=== PATIENT | male | born 2000 | race Caucasian/White ===

== ENCOUNTER 2018-01-24 23:49 | Emergency (ER) | payer OTHER, MEDICAID, SELFPAY ==
[2018-01-24 23:58] VITALS: BP 151/111; PULSE 75; RESP 16; TEMP 36.6; O2SAT 97
--- NOTE | 2018-01-25 00:08 | ED.MALEGU ---
HPI - Male Genitourinary General Chief complaint: Urogenital-Male Stated complaint: groin pain left Time Seen by Provider: 01/25/18 00:03 Source: patient Mode of arrival: ambulatory Limitations: no limitations History of Present Illness HPI Narrative: The patient spontaneously developed severe left hemiscrotum pain about 9:00 p.m. tonight. He had a narcotic pain pills left over from prior dental surgery. He took the medication with little relief. He arrives approximately 3 hr later with continued pain. There is no radiation pain in the lower abdomen. There is no redness or swelling. He has no fever. He denies dysuria. He is a virgin, he has no history of infection. He has similar episode of pain about 3 days ago. The left hemiscrotum was involved at that time too. The pain resolved spontaneously, rather quickly, upon that presentation. Related Data Previous Rx's Medication Instructions Recorded methylphenidate HCl 5 mg PO QAM #30 tab 01/20/17 methylphenidate HCl 5 mg PO QAM #30 tab 01/20/17 methylphenidate HCl [Concerta] 54 mg PO QAM #30 tab 01/20/17 methylphenidate HCl [Concerta] 54 mg PO QAM #30 tab 01/20/17 methylphenidate HCl [Concerta] 36 mg PO QAM #60 tab 04/27/17 citalopram 40 mg tablet 40 mg PO QDAY #30 tab 12/09/17 methylphenidate 5 mg tablet 5 mg PO QAM #30 tab MDD 64 mg 01/23/18 methylphenidate ER 54 mg 54 mg PO QAM #30 tab MDD 64 mg 01/23/18 tablet,extended release 24 hr Allergies Allergy/AdvReac Type Severity Reaction Status Date / Time No Known Drug Allergies Allergy Unverified 12/27/17 09:01 Review of Systems Review of Systems All systems reviewed & are unremarkable except as noted in HPI and below Constitutional Denies chills, Denies fever(s), Denies lethargy and Denies weakness Gastrointestinal Gastrointestinal: Denies abdominal pain, Denies change in bowel habits, Denies diarrhea, Denies nausea and Denies vomiting Genitourinary Reports as per HPI, Denies hematuria, Denies flank pain, Reports testicular pain, Denies urinary incontinence and Denies urinary urgency Integumentary/Breasts Denies pruritus, Denies erythema, Denies rash and Denies wounds Neurologic Denies weakness COUNT INCLUDES THE [facility] Medical History ADHD (attention deficit hyperactivity disorder) (Acute) No significant medical problems (Acute) No significant past surgical history (Acute) Social History Smoking Status: Never smoker alcohol intake: current substance use type: does not use Exam Initial Vital Signs Initial Vital Signs: Vital Signs Temperature 97.8 F 01/24/18 23:58 Pulse Rate 75 01/24/18 23:58 Respiratory Rate 16 01/24/18 23:58 Blood Pressure 151/111 H 01/24/18 23:58 Pulse Oximetry 97 01/24/18 23:58 Const General: cooperative, well developed and acute distress (He is obviously in pain.) Nutritional Appearance: well nourished Orientation: alert, awake, oriented x3 and not confused Resp Effort & Inspection: normal respiratory effort, able to speak in complete sentences, no respiratory distress and no use of accessory muscles Auscultation: clear to auscultation bilaterally, no rales, no rhonchi and no wheezes Cardio Rate: regular rate Rhythm: regular rhythm Heart Sounds: no click, no gallops, no murmurs and no rubs Pulses: normal peripheral pulses GI Inspection: non-distended Palpation: soft, no hepatosplenomegaly, No guarding, No pulsatile mass and No tender Auscultation: normal bowel sounds External: normal external exam, no edema, no erythema and no hernia Penis: normal penis Scrotum: no masses and no scrotal swelling Testes: testicular tenderness on the left and high-riding testicle on the left (The left testicle was rotated 90, consistent with testicular torsion.) Skin General: no rashes or lesions noted Neuro General: alert, oriented x3 and no focal motor deficits Speech: speech normal Course Orders Ordered: ED Orders 01/25/18 00:12 US scrotum Stat 01/25/18 00:23 Complete Blood Count AUTO DIFF Stat Sodium Chloride (Normal Saline 0.9%) 1,000 mls @ 150 mls/hr IV CONT KEANU Last Admin: 01/25/18 00:29 Dose: 150 mls/hr Discontinued Medications Morphine Sulfate (Morphine) 4 mg IV NOW ONE Stop: 01/25/18 00:10 Last Admin: 01/25/18 00:29 Dose: 4 mg Vital Signs - 8 hr 01/24/18 23:58 01/25/18 00:44 01/25/18 00:50 Temperature 97.8 F Pulse Rate 75 84 Respiratory Rate 16 16 Blood Pressure 151/111 H Blood Pressure [Left Arm] 140/82 140/82 Pulse Oximetry 97 99 MDM - Male Genitourinary Medical Records Attestation: I reviewed the patient's medical records. Lab Data Attestation: I reviewed the patient's lab results. Result diagrams: 01/25/18 00:23 Lab Results 01/25/18 Range/Units 00:23 WBC 10.5 (4.5-11.0) X10^3/uL RBC 4.55 (4.5-5.9) X10^6/uL Hgb 14.0 (13.5-17.5) g/dL Hct 40.5 L (41-53) % MCV 89.1 (80-100) fL MCH 30.7 (26-34) PG MCHC 34.4 (30-36) % RDW 13.1 (11.6-14.8) % Plt Count 226 (150-400) X10^3/uL Neut % (Auto) 74.5 (50-75) % Lymph % (Auto) 19.4 L (25-40) % [place] % (Auto) 5.4 (3-14) % Eos % (Auto) 0.3 L (2-4) % Baso % (Auto) 0.4 (0-2) % Neut # (Auto) 7800 H ([id number]) /uL Additional labs are pending at the time of this transfer. That information will be faxed to the attending physicians at [facility] when available. Imaging Data Scrotal ultrasound: My impression: The right testicle demonstrates normal blood flow, no issues. On initial ultrasound there was significant restriction to the left testicle. There appeared to be only minimal blood flow at the periphery. During the ultrasound evaluation the patient experienced a sudden decrease in pain in the left testicle. There was some attains mandaeism of normal flow to the left testicle. Evaluation is most consistent with testicular torsion. [facility] Narrative Medical decision making narrative: I discussed the patient's history, clinical presentation and ultrasound findings with Urology, Dr Ortiz, at the [facility]. She has accepted the patient, he will be evaluated at the [facility] ER. The ER physician, Dr. Joel, was notified of the pending transfer. The patient will be transferred by private vehicle, his mother will be driving him there. Discharge Plan Departure Patient Disposition: [facility] Clinical Impression: Left testicular torsion Prescriptions: No Action methylphenidate HCl 5 MG tablet 5 mg PO QAM Qty: 30 RF: 0 methylphenidate HCl 5 MG tablet 5 mg PO QAM Qty: 30 RF: 0 methylphenidate HCl [Concerta] 54 MG tablet extended release 24hr 54 mg PO QAM Qty: 30 RF: 0 methylphenidate HCl [Concerta] 54 MG tablet extended release 24hr 54 mg PO QAM Qty: 30 RF: 0 methylphenidate HCl [Concerta] 36 MG tablet extended release 24hr 36 mg PO QAM Qty: 60 RF: 0 citalopram [Celexa] 40 mg tablet 40 mg PO QDAY Qty: 30 RF: 5 methylphenidate HCl [Concerta] 54 mg tablet extended release 24hr 54 mg PO QAM MDD 64 mg Qty: 30 RF: 0 methylphenidate HCl 5 mg tablet 5 mg PO QAM MDD 64 mg Qty: 30 RF: 0
--- NOTE | 2018-01-25 00:12 | DI.US.S_ITS ---
PROCEDURE: US SCROTUM INDICATIONS: SEVERE LEFT TESTICULAR PAIN TECHNIQUE: Real-time scanning was performed of the scrotum and testicles, with image documentation. Color and pulse Doppler interrogation was performed of both testicles. COMPARISON: None. FINDINGS: Right: Testicle is normal in size at 2.1 x 2.6 x 4.4 cm, and homogenous in echotexture. Epididymis is normal in overall size and morphology. No hydrocele or varicoceles. Overlying scrotal skin is normal in thickness. Left: Testicle is normal in size at 2.3 x 2.4 x 3.2 cm, and homogeneous in echotexture. Epididymis is asymmetrically mildly larger in overall size and normal in morphology. The left testis measures 9 mm in thickness and the right measures 7 mm. There is mildly increased blood flow at the left epididymis when compared to that on the right. No hydrocele or varicoceles. Overlying scrotal skin is normal in thickness. Doppler: Color and pulse Doppler demonstrate normal and symmetric arterial flow in both testicles. IMPRESSION: Left-sided epididymitis, no evidence of definite left orchitis. Blood flow is patent to the testicles bilaterally. Testicular size is symmetric bilaterally given normal anatomic variation. Dictated by: Rajat Urbina M.D. on 01/25/2018 at 8:14 Approved by: Rajat Urbina M.D. on 01/25/2018 at 8:18
[2018-01-25] MEDS: MORPHINE 4 MG/ML INJ IV (00:29)
[2018-01-25] MEDS: SODIUM CHLORIDE 0.9% 1,000 ML 150 ML IV (00:29)
[2018-01-25 00:33] LABS: Add Manual Diff / Slide Review NO; Basophils Percent Auto 0.4 % (0-2); Eosinophils Percent Auto 0.3 % (2-4); Hematocrit 40.5 % (41-53); Lymphocytes Percent Auto 19.4 % (25-40); Mean Corpuscular HGB Conc 34.4 % (30-36); Mean Corpuscular Hemoglobin 30.7 PG (26-34); Mean Corpuscular Volume 89.1 fL (80-100); Monocytes Percent Auto 5.4 % (3-14); Neutrophils Absolute Auto 7800 /uL (3000-5900); Neutrophils Percent Auto 74.5 % (50-75); Platelet Count 226 X10^3/uL (150-400); Red Blood Cell Count 4.55 X10^6/uL (4.5-5.9); Red Cell Distribution Width 13.1 % (11.6-14.8); White Blood Cell Count 10.5 X10^3/uL (4.5-11.0)
[2018-01-25 00:44] VITALS: BP 140/82
[2018-01-25 00:50] VITALS: BP 140/82; PULSE 84; RESP 16; O2SAT 99
--- NOTE | 2018-01-25 01:12 | ED_ITS ---
HPI - Male Genitourinary General Chief complaint: Urogenital-Male Stated complaint: groin pain left Time Seen by Provider: 01/25/18 00:03 Source: patient Mode of arrival: ambulatory Limitations: no limitations History of Present Illness HPI Narrative: The patient spontaneously developed severe left hemiscrotum pain about 9:00 p.m. tonight. He had a narcotic pain pills left over from prior dental surgery. He took the medication with little relief. He arrives approximately 3 hr later with continued pain. There is no radiation pain in the lower abdomen. There is no redness or swelling. He has no fever. He denies dysuria. He is a virgin, he has no history of infection. He has similar episode of pain about 3 days ago. The left hemiscrotum was involved at that time too. The pain resolved spontaneously, rather quickly, upon that presentation. Related Data Previous Rx's Medication Instructions Recorded methylphenidate HCl 5 mg PO QAM #30 tab 01/20/17 methylphenidate HCl 5 mg PO QAM #30 tab 01/20/17 methylphenidate HCl [Concerta] 54 mg PO QAM #30 tab 01/20/17 methylphenidate HCl [Concerta] 54 mg PO QAM #30 tab 01/20/17 methylphenidate HCl [Concerta] 36 mg PO QAM #60 tab 04/27/17 citalopram 40 mg tablet 40 mg PO QDAY #30 tab 12/09/17 methylphenidate 5 mg tablet 5 mg PO QAM #30 tab MDD 64 mg 01/23/18 methylphenidate ER 54 mg 54 mg PO QAM #30 tab MDD 64 mg 01/23/18 tablet,extended release 24 hr Allergies Allergy/AdvReac Type Severity Reaction Status Date / Time No Known Drug Allergies Allergy Unverified 12/27/17 09:01 Review of Systems Review of Systems All systems reviewed & are unremarkable except as noted in HPI and below Constitutional Denies chills, Denies fever(s), Denies lethargy and Denies weakness Gastrointestinal Gastrointestinal: Denies abdominal pain, Denies change in bowel habits, Denies diarrhea, Denies nausea and Denies vomiting Genitourinary Reports as per HPI, Denies hematuria, Denies flank pain, Reports testicular pain , Denies urinary incontinence and Denies urinary urgency Integumentary/Breasts Denies pruritus, Denies erythema, Denies rash and Denies wounds Neurologic Denies weakness [facility] Medical History ADHD (attention deficit hyperactivity disorder) (Acute) No significant medical problems (Acute) No significant past surgical history (Acute) Social History Smoking Status: Never smoker alcohol intake: current substance use type: does not use Exam Initial Vital Signs Initial Vital Signs: Vital Signs Temperature 97.8 F 01/24/18 23:58 Pulse Rate 75 01/24/18 23:58 Respiratory Rate 16 01/24/18 23:58 Blood Pressure 151/111 H 01/24/18 23:58 Pulse Oximetry 97 01/24/18 23:58 Const General: cooperative, well developed and acute distress (He is obviously in pain.) Nutritional Appearance: well nourished Orientation: alert, awake, oriented x3 and not confused Resp Effort & Inspection: normal respiratory effort, able to speak in complete sentences, no respiratory distress and no use of accessory muscles Auscultation: clear to auscultation bilaterally, no rales, no rhonchi and no wheezes Cardio Rate: regular rate Rhythm: regular rhythm Heart Sounds: no click, no gallops, no murmurs and no rubs Pulses: normal peripheral pulses GI Inspection: non-distended Palpation: soft, no hepatosplenomegaly, No guarding, No pulsatile mass and No tender Auscultation: normal bowel sounds External: normal external exam, no edema, no erythema and no hernia Penis: normal penis Scrotum: no masses and no scrotal swelling Testes: testicular tenderness on the left and high-riding testicle on the left ( The left testicle was rotated 90, consistent with testicular torsion.) Skin General: no rashes or lesions noted Neuro General: alert, oriented x3 and no focal motor deficits Speech: speech normal Course Orders Ordered: ED Orders 01/25/18 00:12 US scrotum Stat 01/25/18 00:23 Complete Blood Count AUTO DIFF Stat Sodium Chloride (Normal Saline 0.9%) 1,000 mls @ 150 mls/hr IV CONT KEANU Last Admin: 01/25/18 00:29 Dose: 150 mls/hr Discontinued Medications Morphine Sulfate (Morphine) 4 mg IV NOW ONE Stop: 01/25/18 00:10 Last Admin: 01/25/18 00:29 Dose: 4 mg Vital Signs - 8 hr 01/24/18 23:58 01/25/18 00:44 01/25/18 00:50 Temperature 97.8 F Pulse Rate 75 84 Respiratory Rate 16 16 Blood Pressure 151/111 H Blood Pressure [Left Arm] 140/82 140/82 Pulse Oximetry 97 99 MDM - Male Genitourinary Medical Records Attestation: I reviewed the patient's medical records. Lab Data Attestation: I reviewed the patient's lab results. Result diagrams: 01/25/18 00:23 Lab Results 01/25/18 Range/Units 00:23 WBC 10.5 (4.5-11.0) X10^3/uL RBC 4.55 (4.5-5.9) X10^6/uL Hgb 14.0 (13.5-17.5) g/dL Hct 40.5 L (41-53) % MCV 89.1 (80-100) fL MCH 30.7 (26-34) PG MCHC 34.4 (30-36) % RDW 13.1 (11.6-14.8) % Plt Count 226 (150-400) X10^3/uL Neut % (Auto) 74.5 (50-75) % Lymph % (Auto) 19.4 L (25-40) % [place] % (Auto) 5.4 (3-14) % Eos % (Auto) 0.3 L (2-4) % Baso % (Auto) 0.4 (0-2) % Neut # (Auto) 7800 H ([id number]) /uL Additional labs are pending at the time of this transfer. That information will be faxed to the attending physicians at [facility] when available. Imaging Data Scrotal ultrasound: My impression: The right testicle demonstrates normal blood flow, no issues. On initial ultrasound there was significant restriction to the left testicle. There appeared to be only minimal blood flow at the periphery. During the ultrasound evaluation the patient experienced a sudden decrease in pain in the left testicle. There was some attains samaritan of normal flow to the left testicle. Evaluation is most consistent with testicular torsion. [facility] Narrative Medical decision making narrative: I discussed the patient's history, clinical presentation and ultrasound findings with Urology, Dr Ortiz, at the [facility]. She has accepted the patient, he will be evaluated at the [facility] ER. The ER physician, Dr. Joel, was notified of the pending transfer. The patient will be transferred by private vehicle, his mother will be driving him there. Discharge Plan Departure Patient Disposition: [facility] Clinical Impression: Left testicular torsion Prescriptions: No Action methylphenidate HCl 5 MG tablet 5 mg PO QAM Qty: 30 RF: 0 methylphenidate HCl 5 MG tablet 5 mg PO QAM Qty: 30 RF: 0 methylphenidate HCl [Concerta] 54 MG tablet extended release 24hr 54 mg PO QAM Qty: 30 RF: 0 methylphenidate HCl [Concerta] 54 MG tablet extended release 24hr 54 mg PO QAM Qty: 30 RF: 0 methylphenidate HCl [Concerta] 36 MG tablet extended release 24hr 36 mg PO QAM Qty: 60 RF: 0 citalopram [Celexa] 40 mg tablet 40 mg PO QDAY Qty: 30 RF: 5 methylphenidate HCl [Concerta] 54 mg tablet extended release 24hr 54 mg PO QAM MDD 64 mg Qty: 30 RF: 0 methylphenidate HCl 5 mg tablet 5 mg PO QAM MDD 64 mg Qty: 30 RF: 0
[2018-01-25 01:18] VITALS: BP 114/61; PULSE 82; RESP 18; O2SAT 99
== END 2018-01-25 01:18 | disposition short-term general hospital (02) ==
PROVIDERS: Emergency Provider Emergency Medicine
DX: N44.00 Torsion of testis, unspecified (principal)
CPT/HCPCS: 36591; 76870; 85025; 96361; 96374; 99283; 99284; J2270

== ENCOUNTER 2018-01-29 13:10 | Emergency (ER) | payer OTHER, MEDICAID, SELFPAY ==
[2018-01-29 13:16] VITALS: BP 128/71; PULSE 93; RESP 15; TEMP 36.8; O2SAT 97; BMI 19.7
--- NOTE | 2018-01-29 13:35 | DI.CT.S_ITS ---
PROCEDURE: CT ABDOMEN PELVIS W CON INDICATIONS: Pain to right upper and right lower quadrant TECHNIQUE: After the administration of intravenous contrast, 5 mm thick sections acquired from the diaphragm to the symphysis. 5 mm coronal and sagittal reformats were acquired. For radiation dose reduction, the following was used: automated exposure control, adjustment of mA and/or kV according to patient size. COMPARISON: None. FINDINGS: Image quality: Excellent. ABDOMEN: Lung bases: There is a 4 mm right lower lobe pulmonary nodule, which is likely post infectious/inflammatory in this age group. Heart size is normal. Solid organs: Liver is normal in size and enhancement. Gallbladder is unremarkable. Biliary system is non dilated. Pancreas enhances normally. Spleen is normal in size and enhancement. There is a 1.0 cm left adrenal nodule. Kidneys demonstrate normal size and enhancement, without hydronephrosis. Peritoneum and bowel: The appendix cannot be clearly identified on this exam, but there are no right lower quadrant inflammatory findings to suggest acute appendicitis. There is diffuse hyperemia and wall thickening of the left descending colon, sigmoid colon, and rectum. No free fluid or air. Nodes and vessels: No retroperitoneal or mesenteric adenopathy by size criteria. Aorta and inferior vena cava are normal in size. Miscellaneous: No ventral hernias. PELVIS: Genitourinary: Bladder wall thickness is normal. Miscellaneous: No inguinal hernias or adenopathy. There are small bilateral hydroceles. Bones: No suspicious bony lesions. No vertebral body compression fractures. IMPRESSION: #1. Diffuse hyperemia and wall thickening of the left descending colon, sigmoid colon, and rectum, which can be seen with colitis. #2. The appendix cannot be definitively identified on this exam, but there are no right lower quadrant inflammatory findings to suggest acute appendicitis. #3. 1.0 cm left adrenal nodule. An outpatient adrenal protocol CT can be considered for further evaluation. #4. Small bilateral hydroceles. Dictated by: Louis Ramesh MD. on 01/29/2018 at 15:56 Approved by: Louis Ramesh M.D. on 01/29/2018 at 16:05
[2018-01-29 13:58] LABS: Add Manual Diff / Slide Review NO; Basophils Percent Auto 0.1 % (0-2); Eosinophils Percent Auto 0.2 % (2-4); Hematocrit 40.2 % (41-53); Hemoglobin 13.9 g/dL (13.5-17.5); Lymphocytes Percent Auto 7.7 % (25-40); Mean Corpuscular HGB Conc 34.6 % (30-36); Mean Corpuscular Hemoglobin 30.7 PG (26-34); Mean Corpuscular Volume 88.8 fL (80-100); Monocytes Percent Auto 14.3 % (3-14); Neutrophils Absolute Auto 6800 /uL (3000-5900); Neutrophils Percent Auto 77.7 % (50-75); Platelet Count 202 X10^3/uL (150-400); Red Blood Cell Count 4.53 X10^6/uL (4.5-5.9); Red Cell Distribution Width 12.8 % (11.6-14.8); White Blood Cell Count 8.8 X10^3/uL (4.5-11.0)
[2018-01-29] MEDS: SODIUM CHLORIDE 0.9% 1,000 ML 1000 ML IV (14:01)
[2018-01-29 14:02] VITALS: BP 93/58; PULSE 106; O2SAT 100
[2018-01-29 14:08] LABS: Alanine Aminotransferase 22 IU/L (21-72); Albumin 4.5 g/dL (3.5-5.0); Albumin Globulin Ratio 1.5 (1.0-2.8); Alkaline Phosphatase 75 U/L (38-126); Aspartate Aminotransferase 24 IU/L (17-59); Bilirubin Total 0.4 mg/dL (0.2-1.3); Blood Urea Nitrogen 9 mg/dL (9-20); Calcium 9.3 mg/dL (8.4-10.2); Carbon Dioxide 27 mmol/L (22-32); Chloride 98 mmol/L (98-107); Estimated Glomerular Filt Rate > 60.0 mL/min (>60); Globulin 3.1 g/dL (1.7-4.1); Glucose 101 mg/dL (70-100); HEMOLYSIS < 15 (0-50); Lipase 17 U/L (23-300); Sodium 138 mmol/L (137-145); Total Protein 7.6 g/dL (6.3-8.2)
[2018-01-29 14:20] VITALS: TEMP 37
--- NOTE | 2018-01-29 14:30 | ED_ITS ---
HPI - Fever <BIRDIE Vang - Last Filed: 01/29/18 21:03> General Chief Complaint: Fever Stated Complaint: Surgery 01/25/18; 101 fever all night Time Seen by Provider: 01/29/18 13:17 Source: patient Mode of arrival: ambulatory Limitations: no limitations History of Present Illness HPI Narrative: 18-year-old male with history of left testicular torsion is a nonsmoker here for complaint of having abdominal pain along with nausea vomiting and diarrhea. he restarted with a fever last night as well. He recently had testicular torsion last week that resolved on its own however he did go to [facility] neurology were the did conduct surgery to tack down both of his testicles to prevent future and testicular torsions. He denies any complications at the incision site or the scrotum. he denies any increased pain into the operative site. Pain is to the right side of his abdomen. He denies taking any antibiotics after the surgery. He denies any trauma to the abdomen. he denies any urinary symptoms. Related Data Previous Rx's Medication Instructions Recorded methylphenidate HCl 5 mg PO QAM #30 tab 01/20/17 methylphenidate HCl 5 mg PO QAM #30 tab 01/20/17 methylphenidate HCl [Concerta] 54 mg PO QAM #30 tab 01/20/17 methylphenidate HCl [Concerta] 54 mg PO QAM #30 tab 01/20/17 methylphenidate HCl [Concerta] 36 mg PO QAM #60 tab 04/27/17 citalopram 40 mg tablet 40 mg PO QDAY #30 tab 12/09/17 methylphenidate 5 mg tablet 5 mg PO QAM #30 tab MDD 64 mg 01/23/18 methylphenidate ER 54 mg 54 mg PO QAM #30 tab MDD 64 mg 01/23/18 tablet,extended release 24 hr ondansetron 4 mg PO Q6-8H PRN #10 tab 01/29/18 Allergies Allergy/AdvReac Type Severity Reaction Status Date / Time No Known Drug Allergies Allergy Verified 01/29/18 13:16 Review of Systems <BIRDIE Vang - Last Filed: 01/29/18 21:03> Constitutional Reports fever(s) Eyes Denies change in vision, Denies eye discharge, Denies irritation and Denies loss of vision ENT Ears, Nose, Mouth, and Throat: Denies change in voice, Denies neck pain and Denies sore throat Cardiovascular Denies chest pain, Denies irregular heart rhythm, Denies lightheadedness, Denies palpitations, Denies dyspnea, Denies dyspnea on exertion and Denies orthopnea Respiratory Denies cough, Denies dyspnea, Denies dyspnea on exertion and Denies wheezing Gastrointestinal Gastrointestinal: Reports abdominal pain, Reports diarrhea and Reports nausea Genitourinary Denies hematuria, Denies flank pain, Denies urinary incontinence and Denies urinary urgency Musculoskeletal Denies neck pain Integumentary/Breasts Denies pruritus, Denies erythema, Denies rash and Denies wounds Neurologic Denies confusion and Denies loss of vision Psychiatric Denies anxiety, Denies confusion, Denies depression, Denies homicidal ideation and Denies suicidal ideation Endocrine Denies palpitations Hematologic/Lymphatic Denies easy bruising Allergic/Immunologic Denies wheezing Exam <BIRDIE Vang - Last Filed: 01/29/18 21:03> Initial Vital Signs Initial Vital Signs: Vital Signs Temperature 98.2 F 01/29/18 13:16 Pulse Rate 93 H 01/29/18 13:16 Respiratory Rate 15 01/29/18 13:16 Blood Pressure 128/71 01/29/18 13:16 Pulse Oximetry 97 01/29/18 13:16 Const General: cooperative and well developed Nutritional Appearance: well nourished Orientation: alert, awake, oriented x3 and not confused [facility] Mouth: oral mucosae normal and moist mucous membranes Eyes Conjunctivae: conjunctivae normal Sclera: sclerae normal Pupils: PERRL EOM: EOM intact bilaterally Resp Effort & Inspection: normal respiratory effort, able to speak in complete sentences, no respiratory distress and no use of accessory muscles Auscultation: clear to auscultation bilaterally, no rales, no rhonchi and no wheezes Cardio Rate: regular rate Rhythm: regular rhythm Heart Sounds: no click, no gallops, no murmurs and no rubs Pulses: normal peripheral pulses GI Inspection: non-distended Palpation: soft, no hepatosplenomegaly, No guarding, No pulsatile mass and tender ( Tenderness on palpation to the right lower quadrant and right upper quadrant.) Auscultation: normal bowel sounds General: No CVA tenderness External: uncircumcised Penis: normal penis Meatus: meatus normal Scrotum: other ( Postsurgical ecchymosis is seen into the scrotal area. No swelling. Incision site appears to be healing well. No signs of infection. No drainage.) Skin General: no rashes or lesions noted, No jaundice and No petechiae Neuro General: alert, oriented x3, gait normal and no focal motor deficits Speech: speech normal <Flako Vilchis DO - Last Filed: 02/01/18 18:13> Initial Vital Signs Initial Vital Signs: Vital Signs Temperature 98.2 F 01/29/18 13:16 Pulse Rate 93 H 01/29/18 13:16 Respiratory Rate 15 01/29/18 13:16 Blood Pressure 128/71 01/29/18 13:16 Pulse Oximetry 97 01/29/18 13:16 Course <BIRDIE Vang - Last Filed: 01/29/18 21:03> Orders Ordered: Discontinued Medications Hydromorphone HCl (Dilaudid) 0.5 mg IV NOW ONE Stop: 01/29/18 13:35 Last Admin: 01/29/18 15:38 Dose: Not Given Sodium Chloride (Normal Saline 0.9%) 1,000 mls @ 1,000 mls/hr IV BOLUS ONE Stop: 01/29/18 14:33 Last Infusion: 01/29/18 14:58 Dose: 0 mls/hr Admin: 01/29/18 14:01 Dose: 1,000 mls/hr Ondansetron HCl (Zofran) 4 mg IV NOW ONE Stop: 01/29/18 13:35 Last Admin: 01/29/18 15:38 Dose: Not Given Vital Signs - 8 hr 01/29/18 13:16 01/29/18 14:02 01/29/18 14:20 Temperature 98.2 F 98.6 F Pulse Rate 93 H 106 H Respiratory Rate 15 Blood Pressure 128/71 Blood Pressure [Right Arm] 93/58 L Pulse Oximetry 97 100 01/29/18 15:39 01/29/18 16:33 Temperature 100.6 F H Pulse Rate 94 H 101 H Respiratory Rate 18 16 Blood Pressure 128/65 Blood Pressure [Right Arm] 113/64 Pulse Oximetry 97 99 <Flako Vilchis DO - Last Filed: 02/01/18 18:13> Orders Ordered: Discontinued Medications Hydromorphone HCl (Dilaudid) 0.5 mg IV NOW ONE Stop: 01/29/18 13:35 Last Admin: 01/29/18 15:38 Dose: Not Given Sodium Chloride (Normal Saline 0.9%) 1,000 mls @ 1,000 mls/hr IV BOLUS ONE Stop: 01/29/18 14:33 Last Infusion: 01/29/18 14:58 Dose: 0 mls/hr Admin: 01/29/18 14:01 Dose: 1,000 mls/hr Ondansetron HCl (Zofran) 4 mg IV NOW ONE Stop: 01/29/18 13:35 Last Admin: 01/29/18 15:38 Dose: Not Given Vital Signs - 8 hr 01/29/18 13:16 01/29/18 14:02 01/29/18 14:20 Temperature 98.2 F 98.6 F Pulse Rate 93 H 106 H Respiratory Rate 15 Blood Pressure 128/71 Blood Pressure [Right Arm] 93/58 L Pulse Oximetry 97 100 01/29/18 15:39 01/29/18 16:33 Temperature 100.6 F H Pulse Rate 94 H 101 H Respiratory Rate 18 16 Blood Pressure 128/65 Blood Pressure [Right Arm] 113/64 Pulse Oximetry 97 99 MDM - Fever <BIRDIE Vang - Last Filed: 01/29/18 21:03> Lab Data Result diagrams: 01/29/18 13:46 01/29/18 13:46 Lab Results 01/29/18 01/29/18 01/29/18 Range/Units 13:46 13:46 14:50 WBC 8.8 (4.5-11.0) X10^3/uL RBC 4.53 (4.5-5.9) X10^6/uL Hgb 13.9 (13.5-17.5) g/dL Hct 40.2 L (41-53) % MCV 88.8 (80-100) fL MCH 30.7 (26-34) PG MCHC 34.6 (30-36) % RDW 12.8 (11.6-14.8) % Plt Count 202 (150-400) X10^3/uL Neut % (Auto) 77.7 H (50-75) % Lymph % (Auto) 7.7 L (25-40) % Parke % (Auto) 14.3 H (3-14) % Eos % (Auto) 0.2 L (2-4) % Baso % (Auto) 0.1 (0-2) % Neut # (Auto) 6800 H (0784-5167) /uL Sodium 138 (137-145) mmol/L Potassium 4.0 (3.4-5.1) mmol/L Chloride 98 (98-107) mmol/L Carbon Dioxide 27 (22-32) mmol/L BUN 9 (9-20) mg/dL Creatinine 1.00 (0.66-1.25) mg/dL Estimated GFR > 60.0 (>60) mL/min BUN/Creatinine Ratio 9.0 (6-22) Glucose 101 H (70-100) mg/dL Calcium 9.3 (8.4-10.2) mg/dL Total Bilirubin 0.4 (0.2-1.3) mg/dL AST 24 (17-59) IU/L ALT 22 (21-72) IU/L Alkaline Phosphatase 75 (38-126) U/L Total Protein 7.6 (6.3-8.2) g/dL Albumin 4.5 (3.5-5.0) g/dL Globulin 3.1 (1.7-4.1) g/dL Albumin/Globulin Ratio 1.5 (1.0-2.8) Lipase 17 L (23-300) U/L Urine RBC 0-1/hpf (0-5/HPF) Urine WBC None seen (0-5/HPF) Urine Bacteria None seen (None) Ur Culture Indicated? Cult not indicated Micro UA Comment Not Reportable Urine Dip Bedside Urine Glucose Negative Bedside Urine Bilirubin - Negative Bedside Urine Ketone + 15 Urine Specific [place] 1.010 Bedside Urine Occult Blood +/- Bedside Urine pH 6.0 Bedside Urine Protein - Negative Bedside Urine Urobilinogen - Negative Bedside Urine Nitrite - Negative Bedside Urine Leukocytes - Negative Esterase Imaging Data CT scan - abdomen: Radiologist's impression: [address] [id number] [address] Scan Report Signed Patient: Andres Galarza TMR#: [id number] : 2000Acct:[id number] Age/Sex: te of Service: 01/29/18 Loc: ED Accession Number: [id number] Procedure: CT abdomen pelvis w con Ordering Provider: Markus Persaud PROCEDURE: CT ABDOMEN PELVIS W CON INDICATIONS: Pain to right upper and right lower quadrant TECHNIQUE: After the administration of intravenous contrast, 5 mm thick sections acquired from the diaphragm to the symphysis. 5 mm coronal and sagittal reformats were acquired. For radiation dose reduction, the following was used: automated exposure control, adjustment of mA and/or kV according to patient size. COMPARISON: None. FINDINGS: Image quality: Excellent. ABDOMEN: Lung bases: There is a 4 mm right lower lobe pulmonary nodule, which is likely post infectious/inflammatory in this age group. Heart size is normal. Solid organs: Liver is normal in size and enhancement. Gallbladder is unremarkable. Biliary system is non dilated. Pancreas enhances normally. Spleen is normal in size and enhancement. There is a 1.0 cm left adrenal nodule. Kidneys demonstrate normal size and enhancement, without hydronephrosis. Peritoneum and bowel: The appendix cannot be clearly identified on this exam, but there are no right lower quadrant inflammatory findings to suggest acute appendicitis. There is diffuse hyperemia and wall thickening of the left descending colon, sigmoid colon, and rectum. No free fluid or air. Nodes and vessels: No retroperitoneal or mesenteric adenopathy by size criteria. Aorta and inferior vena cava are normal in size. Miscellaneous: No ventral hernias. PELVIS: Genitourinary: Bladder wall thickness is normal. Miscellaneous: No inguinal hernias or adenopathy. There are small bilateral hydroceles. Bones: No suspicious bony lesions. No vertebral body compression fractures. IMPRESSION: #1. Diffuse hyperemia and wall thickening of the left descending colon, sigmoid colon, and rectum, which can be seen with colitis. #2. The appendix cannot be definitively identified on this exam, but there are no right lower quadrant inflammatory findings to suggest acute appendicitis. #3. 1.0 cm left adrenal nodule. An outpatient adrenal protocol CT can be considered for further evaluation. #4. Small bilateral hydroceles. Dictated by: Louis Ramesh MD. on 01/29/2018 at 15:56 Approved by: Louis Ramesh M.D. on 01/29/2018 at 16:05 [facility] Narrative Medical decision making narrative: CBC and Chem panel were obtained were unremarkable. Lipase was negative. CT of the abdomen did not visualize appendix however was negative for signs of appendicitis. CT scan does show that there was some thickening to the descending colon wall indicating colitis. Will treat as a viral illness at this point with Zofran. follow up with primary care provider next few days for re-evaluation. Did not appreciate complications to the scrotal area or signs of infection. For any worsening symptoms return to the emergency room. <Flako Vilchis, - Last Filed: 02/01/18 18:13> Lab Data Lab Results 01/29/18 01/29/18 01/29/18 Range/Units 13:46 13:46 14:50 WBC 8.8 (4.5-11.0) X10^3/uL RBC 4.53 (4.5-5.9) X10^6/uL Hgb 13.9 (13.5-17.5) g/dL Hct 40.2 L (41-53) % MCV 88.8 (80-100) fL MCH 30.7 (26-34) PG MCHC 34.6 (30-36) % RDW 12.8 (11.6-14.8) % Plt Count 202 (150-400) X10^3/uL Neut % (Auto) 77.7 H (50-75) % Lymph % (Auto) 7.7 L (25-40) % Parke % (Auto) 14.3 H (3-14) % Eos % (Auto) 0.2 L (2-4) % Baso % (Auto) 0.1 (0-2) % Neut # (Auto) 6800 H (5129-3275) /uL Sodium 138 (137-145) mmol/L Potassium 4.0 (3.4-5.1) mmol/L Chloride 98 (98-107) mmol/L Carbon Dioxide 27 (22-32) mmol/L BUN 9 (9-20) mg/dL Creatinine 1.00 (0.66-1.25) mg/dL Estimated GFR > 60.0 (>60) mL/min BUN/Creatinine Ratio 9.0 (6-22) Glucose 101 H (70-100) mg/dL Calcium 9.3 (8.4-10.2) mg/dL Total Bilirubin 0.4 (0.2-1.3) mg/dL AST 24 (17-59) IU/L ALT 22 (21-72) IU/L Alkaline Phosphatase 75 (38-126) U/L Total Protein 7.6 (6.3-8.2) g/dL Albumin 4.5 (3.5-5.0) g/dL Globulin 3.1 (1.7-4.1) g/dL Albumin/Globulin Ratio 1.5 (1.0-2.8) Lipase 17 L (23-300) U/L Urine RBC 0-1/hpf (0-5/HPF) Urine WBC None seen (0-5/HPF) Urine Bacteria None seen (None) Ur Culture Indicated? Cult not indicated Micro UA Comment Not Reportable Urine Dip Bedside Urine Glucose Negative Bedside Urine Bilirubin - Negative Bedside Urine Ketone + 15 Urine Specific [place] 1.010 Bedside Urine Occult Blood +/- Bedside Urine pH 6.0 Bedside Urine Protein - Negative Bedside Urine Urobilinogen - Negative Bedside Urine Nitrite - Negative Bedside Urine Leukocytes - Negative Esterase Discharge Plan Departure Patient Disposition: Home Clinical Impression: Nausea vomiting and diarrhea Discharge Date/Time: 01/29/18 16:39 Interventions: ED Discharge Assessment Last Done: 01/29/18 16:33 Instructions: Diarrhea Activity Restrictions/Additional Instructions: laboratory results today were unremarkable. CT of the abdomen did not show any signs of appendicitis. He did show that there was inflammation to the colon wall indicating colitis most likely this is a viral illness and should pass on its own. Plenty of fluids and rest. Use Zofran as directed for nausea vomiting. [id number] Tylenol or Motrin as needed for discomfort. Follow up with her primary care provider the next few days for re-evaluation. For any worsening symptoms return to the emergency room. Prescriptions: New ondansetron 4 mg tablet,disintegrating 4 mg PO Q6-8H PRN (Reason: nausea and vomiting) Qty: 10 RF: 0 No Action methylphenidate HCl 5 MG tablet 5 mg PO QAM Qty: 30 RF: 0 methylphenidate HCl 5 MG tablet 5 mg PO QAM Qty: 30 RF: 0 methylphenidate HCl [Concerta] 54 MG tablet extended release 24hr 54 mg PO QAM Qty: 30 RF: 0 methylphenidate HCl [Concerta] 54 MG tablet extended release 24hr 54 mg PO QAM Qty: 30 RF: 0 methylphenidate HCl [Concerta] 36 MG tablet extended release 24hr 36 mg PO QAM Qty: 60 RF: 0 citalopram [Celexa] 40 mg tablet 40 mg PO QDAY Qty: 30 RF: 5 methylphenidate HCl [Concerta] 54 mg tablet extended release 24hr 54 mg PO QAM MDD 64 mg Qty: 30 RF: 0 methylphenidate HCl 5 mg tablet 5 mg PO QAM MDD 64 mg Qty: 30 RF: 0 Referrals: [facility] [Provider Group] <Flako Vilchis DO - Last Filed: 02/01/18 18:13> Cosign ED Attending Dontae Attestation: I was available for consultation during this patient's emergency department encounter
[2018-01-29 15:39] VITALS: BP 113/64; PULSE 94; RESP 18; TEMP 38.1; O2SAT 97
[2018-01-29 16:00] LABS: Bacteria Urine None Seen; WBC Urine None Seen (0-5/HPF)
[2018-01-29 16:22] LABS: Culture Indicated Urine Cult Not Indicated; RBC Urine 0-1/HPF (0-5/HPF)
[2018-01-29 16:33] VITALS: BP 128/65; PULSE 101; RESP 16; O2SAT 99
== END 2018-01-29 16:39 | disposition home or self-care (01) ==
PROVIDERS: Emergency Provider Nurse Practitioner Family
DX: R11.2 Nausea with vomiting, unspecified (principal); R19.7 Diarrhea, unspecified; Z98.890 Other specified postprocedural states
CPT/HCPCS: 36591; 74177; 80053; 81003; 81015; 83690; 85025; 96360; 99283; 99285; Q9967